=== PATIENT | male | born 1940 | race American Indian/Alaskan Native ===

== ENCOUNTER 2016-12-13 13:44 | Emergency (ER) | payer MEDICARE ==
[2016-12-13] MEDS ORDERED: ZOFRAN IV ONE (14:02)
[2016-12-13 14:45] LABS: Basophils % (Auto) 0.8 % (0.0-1.8); Eosinophils % (Auto) 1.2 % (0.0-4.3); Hematocrit 40.1 % (35.5-45.6); Hemoglobin 13.1 gm/dl (11.8-15.2); Mean Corpuscular HGB Conc 33 % (32-34); Mean Corpuscular Hemoglobin 31 pg (28-32); Mean Corpuscular Volume 93 fl (84-94); Platelet Count 111 K/mm3 (140-440); Red Blood Count 4.31 M/mm3 (3.65-5.03); Red Cell Distribution Width 13.5 % (13.2-15.2); White Blood Count 4.8 K/mm3 (4.5-11.0)
[2016-12-13 15:05] LABS: Anion Gap 21 mmol/L; BUN/Creatinine Ratio 26; Blood Urea Nitrogen 31 mg/dL (9-20); Calcium 8.5 mg/dL (8.4-10.2); Carbon Dioxide 23 mmol/L (22-30); Chloride 104.1 mmol/L (98-107); Glucose 124 mg/dL (75-100); Potassium 3.8 mmol/L (3.6-5.0); Sodium 144 mmol/L (137-145)
[2016-12-13] MEDS ORDERED: ANTIVERT PO ONE (17:03)
--- NOTE | 2016-12-13 17:04 | Emergency Department Report ---
HPI - General Chief Complaint: Nausea/Vomiting/Diarrhea Time Seen by Provider: 12/13/16 16:48 - HPI HPI: This is a 76 year-old male presents to the emergency department from home with complaint of dizziness that worsens with movement and causes nausea and vomiting has been going on since this morning. Prior to today , he denies this ever happening before. His only past medical history is hypertension. He did not take anything for her symptoms prior presentation. He denies any headache, vision change, slurred speech, abdominal pain, fever. His primary care physician is a Dr. Bruce Romero. No recent travel or sick contacts at home. ED Past Medical Hx - Past Medical History Previous Medical History?: Yes Hx Hypertension: Yes - Surgical History Past Surgical History?: No - Social History Smoking Status: Never Smoker - Medications Home Medications: Home Medications Medication Instructions Recorded Confirmed Last Taken Type Losartan [Cozaar] 12.5 mg PO QDAY 12/13/16 12/13/16 12/13/16 History Meclizine [Antivert] 25 mg PO TID PRN #20 tablet 12/13/16 Unknown Rx ED Review of Systems ROS: Stated complaint: DIZZY/NAUSEA Other details as noted in HPI Comment: All other systems reviewed and negative Constitutional: denies: chills, fever Eyes: denies: eye pain, eye discharge, vision change ENT: denies: ear pain, throat pain Respiratory: denies: cough, shortness of breath, wheezing Cardiovascular: denies: chest pain, palpitations Gastrointestinal: nausea, vomiting Genitourinary: denies: urgency, dysuria Musculoskeletal: denies: back pain, joint swelling, arthralgia Skin: denies: rash, lesions Neurological: vertigo. denies: headache, weakness Physical Exam - Physical Exam Vital Signs: Vital Signs 12/13/16 12/13/16 12/13/16 13:53 14:05 14:21 Temperature 98.3 F 98.3 F Pulse Rate 90 Respiratory 12 15 Rate Blood Pressure 110/72 [Right] O2 Sat by Pulse 98 Oximetry Physical Exam: GENERAL: The patient is well-developed well-nourished. HENT: Normocephalic. Atraumatic. Patient has moist mucous membranes. EYES: Extraocular motions are intact. Pupils equal reactive to light bilaterally. There is fatigable horizontal nystagmus. NECK: Supple. Trachea is midline. CHEST/LUNGS: Clear to auscultation. There is no respiratory distress noted. HEART/CARDIOVASCULAR: Regular. There is no tachycardia. There is no gallop rub or murmur. ABDOMEN: Abdomen is soft, nontender. Patient has normal bowel sounds. There is no abdominal distention. SKIN: Skin is warm and dry. NEURO: The patient is awake, alert, and oriented. The patient is cooperative. The patient has no focal neurologic deficits. The patient has normal speech. Cranial nerves II through XII grossly intact. No pronator drift. No dysmetria. MUSCULOSKELETAL: There is no tenderness or deformity. There is no limitation range of motion. There is no evidence of acute injury. ED Course Vital Signs 12/13/16 12/13/16 12/13/16 13:53 14:05 14:21 Temperature 98.3 F 98.3 F Pulse Rate 90 Respiratory 12 15 Rate Blood Pressure 110/72 [Right] O2 Sat by Pulse 98 Oximetry ED Medical Decision Making - Lab Data Result diagrams: 12/13/16 13:58 12/13/16 13:58 - Medical Decision Making 76-year-old male presents to the emergency department with complaint of dizziness that sounds like vertigo. On physical exam he has some fatigable horizontal nystagmus but otherwise there is no focal, motor or sensory deficits and his cranial nerves are intact. Labs are unremarkable including no signs of infection, no electrolyte abnormalities and he has normal thyroid function. He was given a dose of Antivert and reevaluated about one hour after administration. He says he is feeling much better and there is no longer any vertigo-like symptoms. He was then walked around the emergency department and was able to do so without any instability without any return of his vertigo- like symptoms. Since patient does not have any focal, motor or sensory deficits and is feeling improved, I did not feel that CT imaging of the head was necessary at this time. He was discharged home to follow up with his primary care doctor and was given a prescription for the Antivert. However if his symptoms worsen or the medication is not working, that he knows to return to the emergency department for further evaluation and probably a CT scan of the head at that time. He understands and agrees to the plan. - Differential Diagnosis vertigo, vasovagal, TIA, Mnire's disease Critical Care Time: No Critical care attestation.: If time is entered above; I have spent that time in minutes in the direct care of this critically ill patient, excluding procedure time. ED Disposition Clinical Impression: Vertigo, Dizziness Disposition: DC-01 TO HOME OR SELFCARE Is pt being admited?: No Condition: Stable Instructions: Vertigo (ED), Dizziness (ED) Additional Instructions: Please follow up with your PCP in the next few days. Return to the ED with any worsening symptoms or any acute distress. Prescriptions: Meclizine [Antivert] 25 mg PO TID PRN #20 tablet PRN Reason: Vertigo Referrals: PRIMARY CARE, [Primary Care Provider] - [facility] Time of Disposition: 19:12
[2016-12-13 19:46] VITALS: BP 110/73
== END 2016-12-13 19:40 | disposition home or self-care (01) ==
LOC: ED 13:44
DX: R42 Dizziness and giddiness (principal); I10 Essential (primary) hypertension
CPT/HCPCS: 36415; 80048; 82962; 84443; 85025; 93005; 93010; 96374; 99284; J2405